=== PATIENT | male | born 1955 | race Caucasian/White ===

== ENCOUNTER → 2017-11-20 | Outpatient (CLI) | payer MEDICARE ==
[2017-11-20 09:13] LABS: BASOPHIL # 0.1 TH/MM3 (0-0.2); BASOPHIL % 0.5 % (0.0-2.0); EOSINOPHIL # 0.1 TH/MM3 (0-0.4); EOSINOPHIL % 0.8 % (0.0-4.0); HEMATOCRIT 44.6 % (39.0-51.0); HEMO FLAGS DIFF FINAL; HEMOGLOBIN 15.3 GM/DL (13.0-17.0); LYMPH % 30.5 % (9.0-44.0); MEAN CELL VOLUME 99.1 FL (80.0-100.0); MEAN CORPUSCULAR HGB CONC 34.3 % (32.0-36.0); MEAN PLATELET VOLUME 8.1 FL (7.0-11.0); MONO % 7.8 % (0.0-8.0); NEUT % 60.4 % (16.0-70.0); PLATELET COUNT 194 TH/MM3 (150-450); RED CELL DISTRIBUTION WIDTH 14.2 % (11.6-17.2); WHITE BLOOD COUNT 13.2 TH/MM3 (4.0-11.0)
[2017-11-20 09:16] LABS: BACTERIA, URINE OCC /hpf; BILIRUBIN, URINE NEG (NEG); BLOOD, URINE TRACE (NEG); GLUCOSE,URINE NEG (NEG); KETONE, URINE NEG (NEG); MUCUS URINE FEW /lpf (OCC); NITRITE,URINE NEG (NEG); URINE COLOR YELLOW (YELLW/STRAW); URINE LEUKOCYTE ESTERASE NEG (NEG)
[2017-11-20 09:17] LABS: COMMENT (UR) CULT NOT INDICATED; CULTURE IF INDICATED CULT NOT INDICATED
[2017-11-20 09:20] LABS: APTT (PATIENT) 25.8 SEC (24.3-30.1); PROTHROMBIN TIME - PATIENT 10.6 SEC (9.8-11.6)
[2017-11-20 09:40] LABS: ALBUMIN 3.7 GM/DL (3.4-5.0); ANION GAP 8 MEQ/L (5-15); AST (GOT) 12 U/L (15-37); BICARBONATE 26.5 MEQ/L (21.0-32.0); BLOOD UREA NITROGEN 11 MG/DL (7-18); CALCIUM 8.6 MG/DL (8.5-10.1); CHLORIDE 105 MEQ/L (98-107); CREATININE 1.13 MG/DL (0.60-1.30); GLOMERULAR FILTRATION RATE 66 ML/MIN (>89); GLUCOSE,FASTING 130 MG/DL (74-99); POTASSIUM 4.1 MEQ/L (3.5-5.1); SODIUM (NA) 139 MEQ/L (136-145)
[2017-11-20 09:43] LABS: ALKALINE PHOSPHATASE 60 U/L (45-117); ALT (GPT) 29 U/L (12-78); TOTAL BILIRUBIN ADULT 0.4 MG/DL (0.2-1.0); TOTAL PROTEIN 6.8 GM/DL (6.4-8.2)
== END ==
LOC: CPRE 08:36
DX: Z01.810 Encounter for preprocedural cardiovascular examination (principal); Z01.812 Encounter for preprocedural laboratory examination; Z01.818 Encounter for other preprocedural examination; N32.1 Vesicointestinal fistula; K57.32 Diverticulitis of large intestine without perforation or abscess without bleeding
CPT/HCPCS: 36415; 71046; 80053; 81001; 85025; 85610; 85730; 93005

== ENCOUNTER 2017-11-28 06:24 | Inpatient (IN) | payer MEDICARE ==
[2017-11-28] VITALS (7 sets, daily range): BP systolic 144–160; BP diastolic 65–73; PULSE 92–96; RESP 18–19; TEMP 97.5–99; O2SAT 95–96
[~2017-11-28] VITALS: Ht 190.5 cm; Wt 98.2 kg
[~2017-11-28 06:24] MED LIST: ALLO300T2 PO; BACL10TA PO; CIPR500T2 PO; HYDR-3583 PO; PRED20 PO; TEST2.5G TOPICAL
[2017-11-28] MEDS ORDERED: LACTATED RINGER'S 1000 ML IV PRN (07:30)
[2017-11-28] MEDS ORDERED: POVIDONE IODINE 5% (ANTISEPSIS KIT) 4 APPLICATIONS EACH NARE PRN (07:30)
[2017-11-28] MEDS ORDERED: INSULIN HUMAN REGULAR 1,000 UNITS/10 ML VIAL SQ PRN (07:30)
[2017-11-28] MEDS ORDERED: METRONIDAZOLE 500 MG/100 ML ISONTONIC SOLN IV SCH (07:30)
[2017-11-28] MEDS ORDERED: CHLORHEXIDINE GLUCONATE 2 % 1 PACK (2 CLOTHS) TOPICAL PRN (07:30)
[2017-11-28] MEDS ORDERED: SODIUM CHLORID 0.9% 500 ML IV PRN (07:30)
[2017-11-28] MEDS ORDERED: ceFAZolin 2 GM PREMIX 50 ML IV SCH (07:30)
[2017-11-28] MEDS ORDERED: DEXT 5%-NACL 0.9% 1000 ML INJ 1,000 ML IV SCH (07:30)
[2017-11-28] MEDS ORDERED: METOPROLOL TARTRATE 25 MG TAB PO PRN (07:30)
[2017-11-28] MEDS ORDERED: ACETAMINOPHEN 1000 MG/100 ML 100 ML IV ONE (07:34)
[2017-11-28] MEDS ORDERED: ARTIFICIAL TEARS OPTH OINT 3.5 APPLIC/3.5 GM TUBO ONE (07:35)
[2017-11-28] MEDS ORDERED: SUGAMMADEX SODIUM 200 MG/2 ML VIAL IV PUSH ONE ×2 (07:35→15:52)
--- NOTE | 2017-11-28 07:41 | PD.HP.UP ---
H&P Update Note The Pre-Admit History and Physical Examination regarding the above named patient was reviewed (including, but not limited to, vital signs, heart, lungs, co-morbid conditions), and upon re-examination it is noted that: the patient's condition has not significantly changed since the last examination. Sunitha Peter MD Nov 28, 2017 07:41
--- NOTE | 2017-11-28 09:54 | PD.OP ---
Operative Report Date of Surgery: Nov 28, 2017 Preoperative Diagnosis: (1) Colovesical fistula Postoperative Diagnosis: (1) Colovesical fistula Procedure: Urologic procedures: Cystoscopy and placement of bilateral ureteral catheters Anesthesia: General Surgeon: Joshua Howe Cigar Roller(s): None Operation and Findings: Indication for urologic procedures: Consult intraoperatively to pass bilateral ureteral catheters to aid in visualization of this patient's ureters during his colorectal procedure. Urologic surgery procedures in detail: Concurrent with the colorectal surgeon, I proceeded with cystoscopy and placement of bilateral ureteral catheters as follows: Initially cystoscopic evaluation was performed utilizing the rigid cystoscope with the 22 Kiswahili sheath and the 30 lens. The urethra was patent without stricture formation. The prostatic urethra was nonobstructing. Further passive cystoscope within the urinary bladder revealed both right and left ureteral orifice these to be in correct anatomic position draining clear yellow urine. There was a fistula opening noted to the bladder dome. The tissue around the fistula was not heaped up. I then proceeded with placing the left open-ended ureteral catheters follows. Initially a sensor 0.035 wire was advanced up the left ureter until a small amount of resistance was met. A 6 Kiswahili open-ended ureteral catheter was then advanced over this wire 25 cm in a cephalad direction. With the open-ended catheter in place, the wire was withdrawn and reintroduced through secondary site via the cystoscope. In similar fashion the contralateral side was accomplished. With both catheters in place, the wire and cystoscope withdrawn and a 16 Kiswahili 10 cc Hoover catheter was placed. The open-ended ureteral catheters were then secured to the Hoover via a connector in all 3 catheters placed to gravity drainage. This completes the urologic surgery portion of combined procedures on this patient. Joshua Howe MD Nov 28, 2017 09:54
[2017-11-28] MEDS ORDERED: fentaNYL CITRATE 250 MCG/5 ML AMP ONE (12:20)
[2017-11-28] MEDS ORDERED: NALOXONE HCL 0.4 MG/ML AMP ONE (12:37)
[2017-11-28] MEDS ORDERED: Post-op Orders (for Pharmacy) XX ONE (15:30)
[2017-11-28] MEDS: PCA - TOTAL MG MORPHINE DELIVERED PER SHIFT SCH ×2 (15:30→20:40)
[2017-11-28] MEDS ORDERED: POTASSIUM CHLOR 40 MEQ PREMIX 100 ML IV PRN (15:30)
[2017-11-28] MEDS ORDERED: diphenhydrAMINE HCL 50 MG/ML VIAL IV PUSH PRN (15:30)
[2017-11-28] MEDS ORDERED: ENALAPRILAT 2.5 MG/2 ML VIAL IV PUSH PRN (15:30)
[2017-11-28] MEDS ORDERED: NALOXONE HCL 0.4 MG/ML AMP IV PUSH PRN (15:30)
[2017-11-28] MEDS ORDERED: ONDANSETRON HCL 4 MG/2 ML VIAL IV PUSH PRN (15:30)
[2017-11-28] MEDS ORDERED: ACETAMINOPHEN 325 MG TAB PO PRN (15:30)
[2017-11-28] MEDS ORDERED: ENALAPRILAT 1.25 MG/ML VIAL IV PUSH PRN (15:30)
[2017-11-28] MEDS ORDERED: POTASSIUM CHLOR 20 MEQ PREMIX 100 ML IV PRN (15:30)
[2017-11-28] MEDS ORDERED: BENZOCAINE 6 MG/MENTHOL 10 MG LOZENGE BUCCAL PRN (15:30)
[2017-11-28] MEDS ORDERED: ACETAMINOPHEN/HYDROcodone 325 MG/5 MG TAB PO PRN (15:30)
[2017-11-28] MEDS ORDERED: methylPREDNISolone ACETATE 40 MG/ML VIAL ONE (15:49)
[2017-11-28] MEDS ORDERED: *RESP: ALBUTEROL 2.5 MG/3 ML NEB (PRN) PERIprocedural Use ONLY NEB ONE (15:53)
[2017-11-28] MEDS ORDERED: DO NOT ADM ANY ANTICOAGULANT DRUGS PRN (16:01)
[2017-11-28] MEDS ORDERED: MIDAZOLAM HCL 2 MG/2 ML VIAL ONE (16:20)
[2017-11-28] MEDS: D5-NS + KCL 20 MEQ INJ 1,000 ML IV SCH ×2 (16:30→20:40)
[2017-11-28] MEDS ORDERED: RESP: ALBUTEROL 2.5 MG/IPRATROPIUM 0.5 MG NEB (SCH) NEB ONE (16:30)
[2017-11-28] MEDS ORDERED: RESP: ALBUTEROL 2.5 MG/IPRATROPIUM 0.5 MG NEB (PRN) ONE (16:38)
[2017-11-28] MEDS ORDERED: methylPREDNISolone SOD SUCC 40 MG/1 ML VIAL IV PUSH ONE (17:00)
[2017-11-28] MEDS: KETOROLAC TROMETHAMINE 30 MG/ML (IVP) VIAL IVP SCH ×2 (17:00→20:39)
[2017-11-28] MEDS ORDERED: *morphine SULFATE 4 MG/ML PERIprocedure ONLY ONE ×2 (17:01→17:21)
[2017-11-28] MEDS: MORPHINE SULFATE 30 MG/30 ML PCA IV SCH (17:29)
[2017-11-28 17:48] LABS: AUTOMATED NEUTROPHIL # 19.7 TH/MM3 (1.8-7.7); BASOPHIL % 0.2 % (0.0-2.0); HEMOGLOBIN 15.4 GM/DL (13.0-17.0); LYMPH % 3.5 % (9.0-44.0); LYMPHOCYTE # 0.8 TH/MM3 (1.0-4.8); MEAN CELL VOLUME 97.7 FL (80.0-100.0); MEAN CORPUSCULAR HGB CONC 35.8 % (32.0-36.0); MONO % 4.5 % (0.0-8.0); NEUT % 91.8 % (16.0-70.0); PLATELET COUNT 203 TH/MM3 (150-450); RED CELL DISTRIBUTION WIDTH 13.8 % (11.6-17.2); WHITE BLOOD COUNT 21.5 TH/MM3 (4.0-11.0)
[2017-11-28 18:10] LABS: BICARBONATE 25.8 MEQ/L (21.0-32.0); CALCIUM 7.9 MG/DL (8.5-10.1); CREATININE 1.1 MG/DL (0.60-1.30)
[2017-11-28] MEDS: metroNIDAZOLE 500 MG INJ 100 ML IV SCH (19:34)
[2017-11-28] MEDS: ACETAMINOPHEN/HYDROcodone 325 MG/5 MG TAB PO PRN (19:35)
[2017-11-28] MEDS: NICOTINE 21 MG/24 HR PATCH T-DERMAL SCH (20:39)
[2017-11-29] VITALS (23 sets, daily range): BP systolic 128–163; BP diastolic 59–74; PULSE 70–102; RESP 18–20; TEMP 97–98.1; O2SAT 92–95
[2017-11-29] MEDS: ACETAMINOPHEN/HYDROcodone 325 MG/5 MG TAB PO PRN ×2 (01:01→06:49)
[2017-11-29] MEDS: MORPHINE SULFATE 30 MG/30 ML PCA IV SCH ×2 (02:17→21:26)
[2017-11-29] MEDS: metroNIDAZOLE 500 MG INJ 100 ML IV SCH ×2 (03:40→11:21)
[2017-11-29] MEDS: KETOROLAC TROMETHAMINE 30 MG/ML (IVP) VIAL IVP SCH ×4 (03:40→21:26)
[2017-11-29] MEDS: PCA - TOTAL MG MORPHINE DELIVERED PER SHIFT SCH ×3 (04:20→21:26)
[2017-11-29] MEDS: D5-NS + KCL 20 MEQ INJ 1,000 ML IV SCH ×4 (05:11→22:45)
[2017-11-29 05:50] LABS: AUTOMATED NEUTROPHIL # 16.8 TH/MM3 (1.8-7.7); BASOPHIL % 0.2 % (0.0-2.0); HEMATOCRIT 40.8 % (39.0-51.0); HEMOGLOBIN 13.9 GM/DL (13.0-17.0); LYMPH % 7.2 % (9.0-44.0); LYMPHOCYTE # 1.4 TH/MM3 (1.0-4.8); MEAN CELL VOLUME 99.8 FL (80.0-100.0); MEAN CORPUSCULAR HEMOGLOBIN 34.1 PG (27.0-34.0); MEAN CORPUSCULAR HGB CONC 34.2 % (32.0-36.0); MEAN PLATELET VOLUME 8.2 FL (7.0-11.0); MONO % 8.2 % (0.0-8.0); MONOCYTE # 1.6 TH/MM3 (0-0.9); NEUT % 84.4 % (16.0-70.0); PLATELET COUNT 205 TH/MM3 (150-450); RED BLOOD COUNT 4.08 MIL/MM3 (4.50-5.90); RED CELL DISTRIBUTION WIDTH 14.1 % (11.6-17.2)
[2017-11-29 06:16] LABS: CALCIUM 7.7 MG/DL (8.5-10.1); CREATININE 1.08 MG/DL (0.60-1.30)
--- NOTE | 2017-11-29 07:04 | HHI.PR ---
Subjective Remarks POD#1 s/p robotic sigmoid resection report back pain (chronic) Objective Vital Signs Date Time Temp Pulse Resp B/P (MAP) Pulse Ox O2 Delivery O2 Flow Rate FiO2 11/29/17 05:00 82 11/29/17 04:20 18 11/29/17 04:00 97.0 91 20 140/65 (90) 92 11/29/17 04:00 89 11/29/17 03:00 86 11/29/17 02:17 18 11/29/17 02:01 18 11/29/17 02:00 80 11/29/17 01:00 102 11/29/17 00:00 Room Air 11/29/17 00:00 96 11/29/17 00:00 18 11/29/17 00:00 97.9 82 18 133/64 (87) 95 11/28/17 23:00 96 11/28/17 22:00 96 11/28/17 21:19 18 11/28/17 21:00 92 11/28/17 20:40 18 11/28/17 20:00 18 11/28/17 20:00 92 11/28/17 20:00 97.5 93 18 144/73 (96) 96 11/28/17 20:00 Nasal Cannula 3.00 11/28/17 19:00 92 11/28/17 17:58 149/65 (93) 11/28/17 17:54 99.0 95 19 160/72 (101) 95 11/28/17 17:45 91 16 147/68 (94) 94 Nasal Cannula 3 11/28/17 17:34 15 11/28/17 17:30 97.6 90 16 151/67 (95) 92 Nasal Cannula 3 11/28/17 17:29 16 11/28/17 17:15 92 15 150/72 (98) 96 Nasal Cannula 4 11/28/17 17:00 93 15 154/77 (102) 94 Nasal Cannula 4 11/28/17 16:45 96 15 149/69 (95) 95 Simple Mask 8 11/28/17 16:30 97 15 154/75 (101) 94 Nasal Cannula 8 11/28/17 16:15 98 15 159/74 (102) 96 Non-Rebreather 11/28/17 16:00 98.6 101 18 161/77 (105) 91 Non-Rebreather 11/28/17 07:11 98.0 84 16 110/69 (83) 97 I/O 11/28/17 11/28/17 11/28/17 11/29/17 11/29/17 11/29/17 07:00 15:00 23:00 07:00 15:00 23:00 Intake Total 2800 ml 1810 ml Output Total 625 ml 1450 ml Balance 2175 ml 360 ml Intake Oral 860 ml IV Total 1200 ml 950 ml Other 1600 ml Output Urine Total 575 ml 1450 ml Estimated Blood Loss 50 ml # Bowel Movements 0 Result Diagram: 11/29/17 0532 11/29/17 0532 Objective Remarks Abdomen soft, mild distension, tender Dressings c/d/i Assessment and Plan Assessment and Plan Mobilize Advance diet d/c stent now, cevallos later today Sunitha Peter MD Nov 29, 2017 07:04
[2017-11-29] MEDS: NICOTINE 21 MG/24 HR PATCH T-DERMAL SCH (08:02)
[2017-11-29] MEDS: predniSONE 20 MG TAB PO SCH (08:02)
[2017-11-29] MEDS: REMOVE OLD PATCH T-DERMAL SCH (08:03)
[2017-11-29] MEDS ORDERED: PANTOPRAZOLE SODIUM 40 MG VIAL IVP SCH (09:00)
[2017-11-29] MEDS: ACETAMINOPHEN/HYDROcodone 325 MG/10 MG TAB PO PRN ×3 (15:02→23:00)
[2017-11-29] MEDS: HEPARIN SODIUM - SQ 10,000 UNITS/ML VIAL SQ SCH (15:05)
[2017-11-30] VITALS (27 sets, daily range): BP systolic 134–161; BP diastolic 63–86; PULSE 64–94; RESP 16–18; TEMP 98.3–98.9; O2SAT 93–98
[2017-11-30] MEDS: ACETAMINOPHEN/HYDROcodone 325 MG/10 MG TAB PO PRN ×4 (03:42→23:50)
[2017-11-30] MEDS: KETOROLAC TROMETHAMINE 30 MG/ML (IVP) VIAL IVP SCH ×4 (03:42→21:08)
[2017-11-30] MEDS: HEPARIN SODIUM - SQ 10,000 UNITS/ML VIAL SQ SCH ×2 (03:42→16:18)
[2017-11-30 04:24] LABS: AUTOMATED NEUTROPHIL # 9.9 TH/MM3 (1.8-7.7); BASOPHIL % 0.2 % (0.0-2.0); EOSINOPHIL % 0.2 % (0.0-4.0); HEMATOCRIT 38.3 % (39.0-51.0); HEMOGLOBIN 12.9 GM/DL (13.0-17.0); LYMPH % 23.3 % (9.0-44.0); LYMPHOCYTE # 3.3 TH/MM3 (1.0-4.8); MEAN CELL VOLUME 99.3 FL (80.0-100.0); MEAN CORPUSCULAR HEMOGLOBIN 33.4 PG (27.0-34.0); MEAN CORPUSCULAR HGB CONC 33.6 % (32.0-36.0); MEAN PLATELET VOLUME 8.3 FL (7.0-11.0); MONO % 6.6 % (0.0-8.0); MONOCYTE # 0.9 TH/MM3 (0-0.9); NEUT % 69.7 % (16.0-70.0); PLATELET COUNT 168 TH/MM3 (150-450); RED BLOOD COUNT 3.85 MIL/MM3 (4.50-5.90); RED CELL DISTRIBUTION WIDTH 14.3 % (11.6-17.2); WHITE BLOOD COUNT 14.2 TH/MM3 (4.0-11.0)
[2017-11-30 04:38] LABS: BICARBONATE 29.2 MEQ/L (21.0-32.0); CALCIUM 7.7 MG/DL (8.5-10.1); CREATININE 0.85 MG/DL (0.60-1.30)
[2017-11-30] MEDS: D5-NS + KCL 20 MEQ INJ 1,000 ML IV SCH ×2 (05:16→22:18)
[2017-11-30] MEDS: PCA - TOTAL MG MORPHINE DELIVERED PER SHIFT SCH (06:00)
[2017-11-30] MEDS: predniSONE 20 MG TAB PO SCH (09:53)
[2017-11-30] MEDS: REMOVE OLD PATCH T-DERMAL SCH (09:55)
[2017-11-30] MEDS: NICOTINE 21 MG/24 HR PATCH T-DERMAL SCH (09:55)
--- NOTE | 2017-11-30 10:48 | HHI.PR ---
Subjective Remarks POD#1 s/p robotic sigmoid resection pain with cevallos attempt last night no abdominal pain reports back pain (chronic) Objective Vital Signs Date Time Temp Pulse Resp B/P (MAP) Pulse Ox O2 Delivery O2 Flow Rate FiO2 11/30/17 07:34 93 21 11/30/17 07:28 98.3 75 16 134/65 (88) 97 11/30/17 07:28 75 11/30/17 06:00 67 11/30/17 06:00 20 11/30/17 05:00 66 11/30/17 04:45 18 11/30/17 04:45 18 11/30/17 04:00 64 11/30/17 03:00 86 11/30/17 03:00 98.4 82 139/63 (88) 93 11/30/17 02:00 78 11/30/17 01:00 68 11/30/17 00:22 18 11/30/17 00:00 72 11/29/17 23:00 82 11/29/17 23:00 98.0 81 163/74 (103) 93 11/29/17 22:15 20 11/29/17 22:00 92 11/29/17 21:26 22 11/29/17 21:26 22 11/29/17 21:00 78 11/29/17 20:00 82 11/29/17 19:00 72 11/29/17 19:00 97.9 72 150/70 (96) 93 11/29/17 18:00 74 11/29/17 17:00 72 11/29/17 16:00 70 11/29/17 15:00 78 11/29/17 15:00 70 11/29/17 15:00 98.1 74 18 145/59 (87) 94 11/29/17 14:00 90 11/29/17 14:00 18 11/29/17 13:00 78 11/29/17 11:30 75 11/29/17 11:30 95 Room Air 11/29/17 11:00 74 I/O 11/29/17 11/29/17 11/29/17 11/30/17 11/30/17 11/30/17 07:00 15:00 23:00 07:00 15:00 23:00 Intake Total 1810 ml 3232 ml 1790 ml Output Total 1450 ml 1000 ml 800 ml Balance 360 ml 2232 ml 990 ml Intake Oral 860 ml 800 ml 840 ml IV Total 950 ml 2432 ml 950 ml Output Urine Total 1450 ml 1000 ml 800 ml # Bowel Movements 0 0 Result Diagram: 11/30/1735011/30/17 035 Objective Remarks Abdomen soft, mild distension, tender Wounds clean Assessment and Plan Assessment and Plan Mobilize Advance diet Cevallos mistakenly removed yesterday, replacement attempted last night without success will leave out, urinating well Transfer Sunitha Peter MD Nov 30, 2017 10:48
[2017-11-30] MEDS: PANTOPRAZOLE SOD 40 MG DELAYED RELEASE TAB PO SCH (11:33)
[2017-12-01] VITALS (10 sets, daily range): BP systolic 132–161; BP diastolic 72–83; PULSE 65–73; RESP 21–22; TEMP 97.7–98.3; O2SAT 94–100
[2017-12-01] MEDS: KETOROLAC TROMETHAMINE 30 MG/ML (IVP) VIAL IVP SCH ×2 (03:02→09:48)
[2017-12-01] MEDS: HEPARIN SODIUM - SQ 10,000 UNITS/ML VIAL SQ SCH ×2 (03:03→14:44)
[2017-12-01 04:34] LABS: BASOPHIL # 0.1 TH/MM3 (0-0.2); BASOPHIL % 0.7 % (0.0-2.0); EOSINOPHIL # 0.1 TH/MM3 (0-0.4); HEMATOCRIT 36.8 % (39.0-51.0); HEMOGLOBIN 12.7 GM/DL (13.0-17.0); LYMPH % 28.6 % (9.0-44.0); LYMPHOCYTE # 3.6 TH/MM3 (1.0-4.8); MEAN CELL VOLUME 99.2 FL (80.0-100.0); MEAN CORPUSCULAR HEMOGLOBIN 34.2 PG (27.0-34.0); MEAN CORPUSCULAR HGB CONC 34.4 % (32.0-36.0); MEAN PLATELET VOLUME 8.2 FL (7.0-11.0); MONO % 6.6 % (0.0-8.0); MONOCYTE # 0.8 TH/MM3 (0-0.9); NEUT % 63.1 % (16.0-70.0); PLATELET COUNT 159 TH/MM3 (150-450); RED BLOOD COUNT 3.71 MIL/MM3 (4.50-5.90); RED CELL DISTRIBUTION WIDTH 14.2 % (11.6-17.2); WHITE BLOOD COUNT 12.6 TH/MM3 (4.0-11.0)
[2017-12-01 04:52] LABS: BICARBONATE 29.3 MEQ/L (21.0-32.0); CALCIUM 8.5 MG/DL (8.5-10.1); CREATININE 0.81 MG/DL (0.60-1.30)
[2017-12-01] MEDS: ACETAMINOPHEN/HYDROcodone 325 MG/10 MG TAB PO PRN ×2 (06:11→14:43)
[2017-12-01] MEDS: REMOVE OLD PATCH T-DERMAL SCH (09:00)
[2017-12-01] MEDS: predniSONE 20 MG TAB PO SCH (09:46)
[2017-12-01] MEDS: PANTOPRAZOLE SOD 40 MG DELAYED RELEASE TAB PO SCH (09:46)
[2017-12-01] MEDS: NICOTINE 21 MG/24 HR PATCH T-DERMAL SCH (09:48)
--- NOTE | 2017-12-01 15:17 | HHI.PR ---
Subjective Remarks POD#1 s/p robotic sigmoid resection back pain last pm, better now Objective Vital Signs Date Time Temp Pulse Resp B/P (MAP) Pulse Ox O2 Delivery O2 Flow Rate FiO2 12/01/17 12:00 97.7 73 21 161/72 (101) 100 12/01/17 10:48 18 12/01/17 08:00 98.3 65 21 155/83 (107) 96 12/01/17 07:25 20 12/01/17 07:00 67 12/01/17 06:03 71 12/01/17 05:00 72 12/01/17 04:02 67 12/01/17 03:00 66 12/01/17 03:00 98.3 66 158/74 (102) 94 12/01/17 02:00 66 12/01/17 01:14 18 12/01/17 01:00 72 12/01/17 00:00 70 11/30/17 23:00 68 11/30/17 23:00 98.4 74 160/76 (104) 98 11/30/17 22:00 94 11/30/17 21:00 72 11/30/17 20:00 70 11/30/17 19:00 70 11/30/17 19:00 98.7 68 156/71 (99) 94 11/30/17 18:00 76 11/30/17 17:00 68 11/30/17 16:00 88 11/30/17 15:30 98.6 75 16 155/86 (109) 97 I/O 11/30/17 11/30/17 11/30/17 12/01/17 12/01/17 12/01/17 07:00 15:00 23:00 07:00 15:00 23:00 Intake Total 1790 ml 2446 ml 1595 ml Output Total 800 ml 1300 ml 400 ml Balance 990 ml 1146 ml 1195 ml Intake Oral 840 ml 1200 ml 240 ml IV Total 950 ml 1246 ml 1355 ml Output Urine Total 800 ml 1300 ml 400 ml # Voids 4 # Bowel Movements 1 Result Diagram: 12/01/176 12/01/17415 Objective Remarks Abdomen soft, mild distension, tender erythema at right lower abdomen Assessment and Plan Assessment and Plan Home today with Keflex OV to check wound Sunitha Peter MD Dec 01, 2017 15:16
[2017-12-01] MEDS ORDERED: CEPH-460 PO (15:20)
--- NOTE | 2017-12-02 08:26 | MP ---
cc: ESA BERMAN M.D., KATHLEEN M.D. MADI JOHN DATE OF SURGERY 11/28/2017 PREOPERATIVE DIAGNOSIS Colovesical fistula. POSTOPERATIVE DIAGNOSIS Diverticulitis, colovesical fistula. PROCEDURE 1. Robotic sigmoid resection 2. Robotic takedown of the splenic flexure. SURGEON Sunitha Peter MD [facility] ANESTHESIA General per ET tube ESTIMATED BLOOD LOSS Less than 100 cc OPERATIVE INDICATIONS The patient is a 62-year-old male who recently was noted to have a colovesical fistula. OPERATIVE FINDINGS The patient had no visible abnormalities noted within the liver. The gallbladder was not visualized. He had a phlegmon in his mid to upper sigmoid attached to the dome of the bladder with induration and thickening of the bowel wall in that area. The bowel distal and proximal to this area was soft and pliable, but there were some diverticula proximally. Dr. Howe then came in and performed cystoscopy with placement of bilateral ureteral catheters, please see his operative note for details. A site was then chosen for the camera just to the right and above the umbilicus. A 10/12 trocar was placed at this location under direct vision using the laparoscope. A brief abdominal survey was then undertaken and the patient had nothing noted that would preclude the robotic approach. A #1 port was placed just below the right anterior superior iliac spine. This is a 10/12 trocar that was placed under direct vision using a laparoscope. The assist port was placed just under the right costal margin equal distance between the number one and the camera port. The patient was then hydroplaned with the head down and slightly to the right. The omentum was brought up-and-over the transverse colon and the small bowel was attempted to be brought out of the pelvis into the right, but it was on a very short mesentery and really for the whole of the case was quite difficult and continually falling into the operative field. The #3 port was placed in the right anterior axillary line in line with the umbilicus. The #2 port, after evaluation, noted that we would need to take down the splenic flexure, was placed two fingerbreadths above the umbilical line in the left midclavicular line. The sigmoid colon was retracted down to the left and the perineum on the right was scored. Dissection continued in this plane behind the vessels until the left ureter was clearly identified and swept away from the specimen. A window was then made around the vessels and a white load of the Exira endostapler was placed across this, was closed, held for 30 seconds, fired and removed. It was necessary to clip an area of bleeding on the staple line using the Hemolock clips. Dissection then continued posterior to the descending colon mesentery dissecting free up to the level of the pancreas and laterally to the sidewall. The distal sigmoid and rectum were then retracted anteriorly and dissection was continued posteriorly down to the level of the mid rectum. At this point, I could not get any further dissection proximally on the bowel. The lateral peritoneal attachments of the sigmoid colon were then carefully dissected free, freeing it from the left pelvic sidewall, as well as the dome of the bladder. Eventually we had dissected down and this eventually met our previous dissection being careful again to be sure that the ureter was outside of our dissection field. Dissection continued up the descending colon freeing it from its of pelvic sidewall and with a lot of difficulty we were eventually able to dissect up and around the splenic flexure. Most of this difficulty was due to the fairly high amount of body fat he had in his abdominal cavity, as well as the small bowel with the short mesentery which kept getting sucked down into our area of concern. There was one small serosal area in the small bowel that was repaired in an interrupted [id number] fashion using 3-0 Vicryl. Eventually, I felt that we probably had adequate length, but if not there was nothing further we could do without redocking the robot, and so we proceeded with the pelvic portion of the procedure. The posterior dissection was carried down to the distal rectum and the [id number] dissection was continued up and around into the anterior cul-de-sac. A sponge stick was then placed into the rectum. A site was chosen for division of the rectum just distal to the rectosigmoid junction. The mesentery at this level was divided using the harmonic scalpel and a reload of the Exira Endostapler was placed across the bowel at this level. A second load was necessary to transect the bowel. A 33 EEA stapler was then brought onto the field, placed into the rectum, and advanced nicely to the rectal stump and lay in a nice orientation. A small amount of fibrofatty tissue was removed from the proposed surgical stapler and the stapler was removed. At this point, the robot was undocked and a 12-15 cm transverse incision was made in the suprapubic area using electrocautery dissection. It was carried down to the fascia of the intra-abdominal wall. The anterior fascia was split the length of the skin incision. The medial fibers of the rectus abdominis were divided and the posterior fascia was divided using electrocautery as well. A wound protector was then placed and the distal stapled end of the sigmoid colon was then grasped and pulled anteriorly up and through the wound protector. A site was chosen for proximal division of the bowel where it was pink, healthy and soft and where it would come down nicely to the pubic tubercle. The mesentery at this level was serially divided and ligated using 0-Vicryl ties and a pursestring suture was placed across the bowel proximally. The distal bowel was occluded with a Janes clamp and the bowel was amputated. It was taken to a back table where it was later opened and then sent for pathology. Just prior to this, we had gone back in with the laparoscope to look at the transverse colon as there was an area of concern, but it looks clean and any concern was unfounded. However, there was one small serosal tear in the descending colon that was repaired in a [id number] fashion using 3-0 Vicryl. The anvil from the 33 EEA was brought onto the field and placed into the cut end of the bowel, but did not lay without tension until I elected to switch over to a 29 EEA stapler. An anvil from a 29 EEA stapler was placed into the cut end of the bowel and the previously placed pursestring suture was then secured. The bowel with the anvil in place was then placed back into the peritoneal cavity and after gentle digital dilatation of the anus, the spike was advanced as well as the pursestring staple and the anvil was into the spike being careful that the stapler was not twisted. The stapler was closed, held for 30 seconds, fired and removed thus creating an intra enterotomy. The enterotomy looked pink and healthy circumferentially. A small amount of warm normal saline was placed in the pelvis and the proximal bowel was occluded with pressure. Air was insufflated into the rectum to the extent possible until gentle tension was noted on the anastomosis with no sign of any significant leak. However due to the patient's fairly large body habitus, there was quite a bit of tissue and the staple line was reinforced in an interrupted fashion using 3-0 Vicryl. The pelvis was then irrigated with normal saline until return of clear effluent and the bowel was noted to lay in a nice orientation with no tension on the anastomosis. The posterior fascia at the suprapubic excision was closed in running fashion using #1 PDS and the wound was copiously irrigated with warm normal saline and the skin was closed in a running subcuticular fashion using 3-0 Vicryl. CO2 insufflation was then resumed and the 10/12 trocar sites were then closed at the right lower quadrant and the umbilical site was closed using the crossbow device and #1 PDS suture. The air was desufflated to the extent possible and the fascial suture was secured. The trocar sites were irrigated with warm normal saline and the skin was closed in an interrupted subcuticular fashion using 3-0 Vicryl. The right ureteral stent was then removed. A sterile dressing was then applied. All sponge, needle and sponge counts were correct and the patient was returned to the post anesthesia care in stable condition. MD MARCIO Brown/MANUEL /3:20 PM /7:42 AM
--- NOTE | 2017-12-05 16:49 | MD ---
cc: ROSITA CABALLERO M.D. ADMISSION DATE: 11/28/2017 DISCHARGE DATE: 12/01/2017 ADMISSION DIAGNOSIS 1. Colon fistula. 2. Diverticulitis DISCHARGE DIAGNOSIS 1. Colon fistula. 2. Diverticulitis PROCEDURE: 1. Cystoscopy with placement of bilateral ureteral catheters. 2. Robotic sigmoid resection with takedown splenic flexure. HOSPITAL COURSE The patient is a 62 year-old male with a symptomatic colofistula, he was taken to the operating room after outpatient bowel prep on the when he underwent the above-named procedures. Postoperatively he did well with rapid return of bowel and bladder function. There was discharged to home on postoperative day #3 with instructions to follow-up myself in the office. Final pathology was not available at the time of discharge. MD MARCIO Brown/hemal /3:21 PM /4:42 PM
== END 2017-12-01 16:10 | disposition home or self-care (01) | DRG 330 ==
LOC: HSDI 06:24 → HCPC 17:55 → N03B 12-01 07:54
PROVIDERS: ADMIT Colon & Rectal Surgery; ATTEND Colon & Rectal Surgery
PROC: 8E0W4CZ Robotic Assisted Procedure of Trunk Region, Percutaneous Endoscopic Approach (ICD-10-PCS; 2017-11-28)
PROC: 0T788DZ Dilation of Bilateral Ureters with Intraluminal Device, Via Natural or Artificial Opening Endoscopic (ICD-10-PCS; 2017-11-28)
PROC: 0DTN0ZZ Resection of Sigmoid Colon, Open Approach (ICD-10-PCS; principal; 2017-11-28 08:10)
PROC: 0DBP4ZZ Excision of Rectum, Percutaneous Endoscopic Approach (ICD-10-PCS; 2017-11-28 08:10)
DX: K57.20 Diverticulitis of large intestine with perforation and abscess without bleeding (principal); E11.51 Type 2 diabetes mellitus with diabetic peripheral angiopathy without gangrene; N32.1 Vesicointestinal fistula; F17.210 Nicotine dependence, cigarettes, uncomplicated; J44.9 Chronic obstructive pulmonary disease, unspecified; G89.29 Other chronic pain; M54.32 Sciatica, left side; M54.31 Sciatica, right side; M10.9 Gout, unspecified; K21.9 Gastro-esophageal reflux disease without esophagitis; M54.9 Dorsalgia, unspecified
CPT/HCPCS: 80048; 85025; 86850; 86900; 86901; 88307; 94150; 94640; C9113; J0131; J0690; J1030; J1200; J1644; J1885; J2250; J2270; J2310; J2920; J3010; J3480; J7120; J7512; J7613